=== PATIENT | male | born 1960 | race Caucasian/White ===

== ENCOUNTER → 2022-08-28 | Outpatient (CLI) | payer BC ==
--- NOTE | 2022-08-30 14:00 | US ---
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 Left: Monophasic and biphasic Right Brachial Pressure: 128 Left Brachial Pressure: 132 Ankle-Brachial Indices: Right: 1.2 Left: 0.9 Toe Brachial Indices: Right: 0.56 Left: 0.7 IMPRESSION: Diminished right-sided TBI consistent with at least mild peripheral arterial disease in the right foot. Follow-up advised.
== END | disposition home or self-care (01) ==
LOC: RADUSWWP 12:57
PROVIDERS: ATTEND Family Medicine
DX: I74.3 Embolism and thrombosis of arteries of the lower extremities (principal); E78.5 Hyperlipidemia, unspecified; Z87.891 Personal history of nicotine dependence
CPT/HCPCS: 93922

== ENCOUNTER 2023-05-14 07:50 | Day surgery (SDC) | payer BC, MEDICARE ==
[~2023-05-14 07:50] MED LIST: LIDOCAINE 1% (10MG/ML) FOR IV START INTRADERMA PRN
[2023-05-14] MEDS: LACTATED RINGERS 1,000 ML IV SCH (08:20)
[2023-05-14 08:36] VITALS: TEMP 97.3
[2023-05-14] MEDS ORDERED: PROPOFOL 10 MG/ML 20 ML VIAL IV ONE (08:58)
--- NOTE | 2023-05-14 09:16 | P.PCN ---
Date of Procedure: 05/14/23 Procedure(s) Performed: BRIEF HISTORY: Patient is a 63-year-old pleasant white malescheduled for an elective colonoscopy as a part of value should prior history of colon polyps. Last colonoscopy was 5 years ago. PROCEDURE PERFORMED: Colonoscopy with biopsy . PREOPERATIVE DIAGNOSIS: History of colon polyps. IV sedation per Anesthesia. PROCEDURE: After informed consent was obtained, the patient, was brought into the endoscopy unit. IV sedation was administered by Anesthesia under continuous monitoring. Digital rectal examination was normal. Initially the Olympus CF-160 flexible video colonoscope was then inserted in the rectum, gradually advanced into the cecum without any difficulty. Careful examination was performed as the scope was gradually being withdrawn. Ileocecal valve and the appendiceal orifice were visualized and appeared normal. Prep was excellent. Mucosa of the cecum, ascending colon, normal. In the transverse colon there was a 3-4 mm sessile polyp that was removed by cold biopsy. Rest of thetransverse colon, descending colon, sigmoid colon, and rectum appeared normal. as was located at 25 cm from the anal verge. moderate left-sided diverticulosis. Retroflexion was performed in the rectum and no lesions were seen. The patient tolerated the procedure well. IMPRESSION: 3-4 mm sessile transverse colon polyp status post cold biopsy Moderate left sided diverticulosis RECOMMENDATIONS: Findings of this examination were discussed with the patient as well as the his family. He was advised to follow up the biopsy results. If the biopsy results reveal adenoma, recommend a repeat colonoscopy in 5 years.
[2023-05-14 09:36] VITALS: RESP 16
[2023-05-14 10:05] VITALS: BP 137/79; PULSE 65
== END 2023-05-14 10:09 | disposition home or self-care (01) ==
LOC: ORWHC2ENDO 07:50
PROVIDERS: ATTEND Internal Medicine Gastroenterology
DX: Z12.11 Encounter for screening for malignant neoplasm of colon (principal); K57.30 Diverticulosis of large intestine without perforation or abscess without bleeding; K63.5 Polyp of colon; I71.40 Abdominal aortic aneurysm, without rupture, unspecified; J44.9 Chronic obstructive pulmonary disease, unspecified; E78.5 Hyperlipidemia, unspecified; N42.9 Disorder of prostate, unspecified; F41.9 Anxiety disorder, unspecified; K21.9 Gastro-esophageal reflux disease without esophagitis; Z79.82 Long term (current) use of aspirin; Z79.51 Long term (current) use of inhaled steroids; Z86.010 Personal history of colon polyps; Z79.899 Other long term (current) drug therapy; Z87.891 Personal history of nicotine dependence
CPT/HCPCS: 45380; J2704; 88305